=== PATIENT | female | born 1950 | race African-American/Black ===

== ENCOUNTER 2019-04-29 11:53 | Inpatient (IN) | payer OTHER ==
[2019-04-29] VITALS (7 sets, daily range): BP systolic 127–152; BP diastolic 19–103
[~2019-04-29] VITALS: Ht 167.6 cm; Wt 81.2 kg
[2019-04-29] MEDS ORDERED: ALBUTEROL (0.083%) 2.5MG/3ML NEB HHN STA (12:27)
[2019-04-29] MEDS ORDERED: METHYLPREDNISOLONE SOD SUCC 125 MG/2 ML VIAL IV STA (12:27)
[2019-04-29] MEDS ORDERED: IPRATROPIUM BROMIDE (0.02%) 0.5MG/2.5ML NEB HHN STA (12:27)
[2019-04-29] MEDS ORDERED: ASPIRIN 81MG TABLET PO ONE (12:30)
[2019-04-29 12:48] LABS: BASOPHILS % 0.6 % (0.0-2.0); EOSINOPHILS % 1.1 % (0.0-5.0); HEMOGLOBIN. 14.8 g/dL (12.0-16.0); LYMPHOCYTES % 24.8 % (20.0-50.0); MEAN CORPUSCULAR HEMOGLOBIN 31.9 pg (28.0-32.0); MEAN CORPUSCULAR VOLUME 94.8 fL (81.0-99.0); MEAN PLATELET VOLUME 9.4 fl (7.4-10.4); MONOCYTES % 6.4 % (2.0-8.0); NEUTROPHILS % 67.1 % (40.0-76.0); PLATELET 134 x1000/uL (130-400); RED BLOOD CELL COUNT 4.64 mill/uL (4.2-5.4); RED CELL DISTRIBUTION WIDTH 13.4 % (11.6-14.6)
[2019-04-29 12:56] LABS: CHLORIDE 99 mEq/L (98-107)
[2019-04-29] MEDS ORDERED: NITROGLYCERIN 0.4MG TABLET SL SL ONE (13:30)
[2019-04-29] MEDS ORDERED: ENOXAPARIN 80MG/0.8ML SYR SUBCUT ONE (14:30)
[2019-04-29] MEDS ORDERED: CLONIDINE 0.1MG TABLET PO PRN ×2 (16:15→21:00)
[2019-04-29] MEDS: POTASSIUM CHLORIDE 20MEQ TABLET SR PO SCH (17:22)
[2019-04-29] MEDS: NITROGLYCERIN OINT 1GM/INCH UDPKT TD SCH ×2 (17:24→23:19)
[2019-04-29] MEDS ORDERED: ONDANSETRON HCL 4MG/2ML INJ IV PRN (21:00)
[2019-04-29] MEDS: LOSARTAN POTASSIUM 50 MG TABLET PO SCH (21:58)
[2019-04-29] MEDS: ACETAMINOPHEN 325MG TABLET PO PRN (21:58)
[2019-04-29] MEDS: FAMOTIDINE 20MG TABLET PO SCH (21:58)
[2019-04-29] MEDS: AMLODIPINE 2.5MG TABLET PO SCH (23:18)
[2019-04-30] VITALS (19 sets, daily range): BP systolic 99–138; BP diastolic 49–90
[2019-04-30] MEDS: IPRATROPIUM/ALBUTEROL 0.5-3(2.5)MG/3ML NEB HHN PRN ×2 (00:55→05:52)
[2019-04-30] MEDS: NITROGLYCERIN OINT 1GM/INCH UDPKT TD SCH ×3 (05:43→17:12)
[2019-04-30 07:53] LABS: CLARITY URINE CLOUDY (CLEAR); COLOR URINE YELLOW (YELLOW); KETONES URINE TRACE (NEGATIVE); LEUKOCYTE ESTERASE URINE 1+ (NEGATIVE); NITRITE URINE NEGATIVE (NEGATIVE); OCCULT BLOOD URINE 1+ (NEGATIVE); PH URINE 5.5 (4.5-8.0); PROTEIN URINE 1+ (NEGATIVE); SPECIFIC GRAVITY URINE 1.022 (1.005-1.030)
[2019-04-30] MEDS: ASPIRIN 81MG EC TABLET PO SCH (08:13)
[2019-04-30] MEDS: AMLODIPINE 2.5MG TABLET PO SCH ×2 (08:13→21:00)
[2019-04-30] MEDS: LOSARTAN POTASSIUM 50 MG TABLET PO SCH ×2 (08:14→21:00)
[2019-04-30] MEDS: ACETAMINOPHEN 325MG TABLET PO PRN (08:20)
[2019-04-30 08:42] LABS: BASOPHILS % 0.5 % (0.0-2.0); HEMATOCRIT. 45.3 % (36.0-48.0); LYMPHOCYTES % 13.9 % (20.0-50.0); MEAN CORPUSCULAR HEMOGLOBIN 31.6 pg (28.0-32.0); MEAN CORPUSCULAR VOLUME 95.2 fL (81.0-99.0); MEAN PLATELET VOLUME 10.4 fl (7.4-10.4); MONOCYTES % 6.6 % (2.0-8.0); PLATELET 134 x1000/uL (130-400); RED BLOOD CELL COUNT 4.76 mill/uL (4.2-5.4); RED CELL DISTRIBUTION WIDTH 13.4 % (11.6-14.6)
[2019-04-30 08:45] LABS: CHLORIDE 101 mEq/L (98-107)
[2019-04-30 08:53] LABS: HDL CHOLESTEROL 67 mg/dL (40-59)
[2019-04-30 08:54] LABS: CREATINE KINASE 91 IU/L (26-192); LDL CHOLESTEROL 116 mg/dL (5-100)
[2019-04-30 08:55] LABS: T4 FREE 1.22 ng/dL (0.76-1.46)
[2019-04-30] MEDS ORDERED: ASPIRIN 81MG EC TABLET PO SCH (09:00)
[2019-04-30] MEDS: POTASSIUM CHLORIDE 20MEQ TABLET SR PO SCH ×2 (09:18→16:10)
[2019-04-30] MEDS ORDERED: ENOXAPARIN 60MG/0.6ML SYR SUBCUT NR (12:15)
[2019-04-30] MEDS ORDERED: NITROGLYCERIN 0.4MG TABLET SL SL PRN (15:45)
[2019-04-30] MEDS ORDERED: BISACODYL 5MG TABLET PO PRN (15:45)
[2019-04-30] MEDS ORDERED: HYDROCODONE/ACETAMINOPHEN 5/325MG TABLET PO PRN (15:45)
[2019-04-30] MEDS ORDERED: HYDRALAZINE 20MG/ML VIAL IV PRN (15:45)
[2019-04-30] MEDS ORDERED: DIPHENHYDRAMINE 50MG/ML VIAL IV PRN (15:45)
[2019-04-30] MEDS: METHYLPREDNISOLONE SOD SUCC 40 MG/ML VIAL IV SCH (17:09)
[2019-04-30] MEDS: IPRATROPIUM/ALBUTEROL 0.5-3(2.5)MG/3ML NEB HHN SCH (19:59)
[2019-04-30] MEDS: BUDESONIDE 0.5MG/2ML NEB HHN SCH (19:59)
[2019-04-30] MEDS: FAMOTIDINE 20MG TABLET PO SCH (20:09)
[2019-04-30] MEDS: CEFTRIAXONE 1 G PREMIX 50 ML IV SCH (20:09)
[2019-04-30] MEDS: ATORVASTATIN CALCIUM 10MG TABLET PO SCH (20:09)
[2019-04-30] MEDS ORDERED: ENOXAPARIN 40MG/0.4ML SYR SUBCUT SCH (21:00)
[2019-05-01] VITALS (19 sets, daily range): BP systolic 114–173; BP diastolic 60–106
[2019-05-01] MEDS ORDERED: DEXT 5%/0.45% NACL 1000ML 1,000 ML IV SCH
[2019-05-01] MEDS ORDERED: ENOXAPARIN 60MG/0.6ML SYR SUBCUT NR (00:15)
[2019-05-01] MEDS: IPRATROPIUM/ALBUTEROL 0.5-3(2.5)MG/3ML NEB HHN SCH ×4 (01:56→20:46)
[2019-05-01] MEDS: METHYLPREDNISOLONE SOD SUCC 40 MG/ML VIAL IV SCH ×2 (05:33→17:57)
[2019-05-01] MEDS: NITROGLYCERIN OINT 1GM/INCH UDPKT TD SCH ×4 (05:33→18:00)
[2019-05-01 06:55] LABS: BASOPHILS % 0.2 % (0.0-2.0); HEMATOCRIT. 45.4 % (36.0-48.0); HEMOGLOBIN. 14.9 g/dL (12.0-16.0); MEAN CORPUSCULAR HEMOGLOBIN 31.4 pg (28.0-32.0); MEAN CORPUSCULAR VOLUME 95.5 fL (81.0-99.0); MEAN PLATELET VOLUME 10.8 fl (7.4-10.4); MONOCYTES % 3.8 % (2.0-8.0); PLATELET 145 x1000/uL (130-400); RED BLOOD CELL COUNT 4.76 mill/uL (4.2-5.4); RED CELL DISTRIBUTION WIDTH 13.9 % (11.6-14.6)
[2019-05-01] MEDS: POTASSIUM CHLORIDE 20MEQ TABLET SR PO SCH ×2 (09:00→17:59)
[2019-05-01] MEDS: ASPIRIN 81MG EC TABLET PO SCH (09:00)
[2019-05-01] MEDS: LOSARTAN POTASSIUM 50 MG TABLET PO SCH ×2 (09:00→22:29)
[2019-05-01] MEDS: AMLODIPINE 2.5MG TABLET PO SCH ×2 (09:00→21:03)
[2019-05-01 09:28] LABS: CHLORIDE 103 mEq/L (98-107)
[2019-05-01 09:43] LABS: CREATINE KINASE 95 IU/L (26-192)
[2019-05-01 09:47] LABS: CREATINE KINASE MB FRACTION 8.4 ng/mL (0.5-3.6)
[2019-05-01] MEDS: BUDESONIDE 0.5MG/2ML NEB HHN SCH ×2 (09:48→20:46)
[2019-05-01] MEDS: SODIUM CHLORIDE 0.45% 1,000 ML IV SCH (10:32)
[2019-05-01] MEDS ORDERED: FUROSEMIDE 40MG/4ML VIAL IVP NR (11:15)
[2019-05-01] MEDS: ACETAMINOPHEN 325MG TABLET PO PRN (13:40)
[2019-05-01] MEDS: CEFTRIAXONE 1 G PREMIX 50 ML IV SCH (17:58)
[2019-05-01] MEDS: FAMOTIDINE 20MG TABLET PO SCH (21:03)
[2019-05-01] MEDS: ATORVASTATIN CALCIUM 10MG TABLET PO SCH (21:03)
[2019-05-01] MEDS: ENOXAPARIN 40MG/0.4ML SYR SUBCUT SCH (21:04)
[2019-05-02] VITALS (15 sets, daily range): BP systolic 108–175; BP diastolic 50–99
[2019-05-02] MEDS: NITROGLYCERIN OINT 1GM/INCH UDPKT TD SCH ×5 (01:00→23:48)
[2019-05-02] MEDS: SODIUM CHLORIDE 0.45% 1,000 ML IV SCH (01:10)
[2019-05-02] MEDS: IPRATROPIUM/ALBUTEROL 0.5-3(2.5)MG/3ML NEB HHN SCH ×4 (02:13→20:01)
[2019-05-02] MEDS: METHYLPREDNISOLONE SOD SUCC 40 MG/ML VIAL IV SCH (04:20)
[2019-05-02 07:20] LABS: CHLORIDE 104 mEq/L (98-107)
[2019-05-02 07:33] LABS: HEMATOCRIT. 42.5 % (36.0-48.0); HEMOGLOBIN. 13.9 g/dL (12.0-16.0); MEAN CORPUSCULAR HEMOGLOBIN 31.5 pg (28.0-32.0); MEAN CORPUSCULAR VOLUME 96.2 fL (81.0-99.0); MEAN PLATELET VOLUME 10.6 fl (7.4-10.4); PLATELET 131 x1000/uL (130-400); RED BLOOD CELL COUNT 4.42 mill/uL (4.2-5.4); RED CELL DISTRIBUTION WIDTH 13.7 % (11.6-14.6)
[2019-05-02] MEDS: BUDESONIDE 0.5MG/2ML NEB HHN SCH ×2 (08:57→20:01)
[2019-05-02] MEDS: ENOXAPARIN 40MG/0.4ML SYR SUBCUT SCH (09:00)
[2019-05-02] MEDS: POTASSIUM CHLORIDE 20MEQ TABLET SR PO SCH ×2 (09:00→17:03)
[2019-05-02] MEDS: AMLODIPINE 2.5MG TABLET PO SCH (09:00)
[2019-05-02] MEDS: FUROSEMIDE 40MG/4ML VIAL IVP SCH (09:00)
[2019-05-02] MEDS: LOSARTAN POTASSIUM 50 MG TABLET PO SCH ×2 (09:00→20:47)
[2019-05-02] MEDS: ASPIRIN 81MG EC TABLET PO SCH (09:44)
[2019-05-02 12:44] LABS: PLATELET ESTIMATE NORMAL
[2019-05-02] MEDS ORDERED: NITROGLYCERIN 50MCG/ML 10ML VIAL (CATH LAB) IV ONE (12:54)
[2019-05-02] MEDS ORDERED: NICARDIPINE 100MCG/ML 10ML VIAL (CATH LAB) IV ONE (12:54)
[2019-05-02] MEDS ORDERED: HEPARIN SODIUM 1,000 UNIT/1ML VIAL IV ONE (12:54)
[2019-05-02] MEDS ORDERED: LIDOCAINE HCL 1% 20ML VIAL (Pyxis) INJ ONE (13:53)
[2019-05-02] MEDS ORDERED: IODIXANOL 320MG/ML 100 ML BOTTLE IV ONE (13:53)
[2019-05-02] MEDS ORDERED: ASPIRIN/SOD BICARB/CITRIC ACID 324MG TAB EFF ONE (14:09)
[2019-05-02] MEDS ORDERED: MIDAZOLAM HCL 2 MG/2 ML VIAL ONE (14:16)
[2019-05-02] MEDS ORDERED: FENTANYL CITRATE/PF 50MCG/ML 2ML VIAL ONE (14:17)
[2019-05-02] MEDS ORDERED: ONDANSETRON HCL 4MG/2ML INJ IV PRN (14:45)
[2019-05-02] MEDS ORDERED: ACETAMINOPHEN 325MG TABLET PO PRN (14:45)
[2019-05-02] MEDS ORDERED: SODIUM CHLORIDE 0.45% 400 ML IV ONE (14:45)
[2019-05-02] MEDS ORDERED: MORPHINE SULFATE 2 MG/ML CPJ (NOT FOR IM USE) IV PRN (14:45)
[2019-05-02] MEDS ORDERED: ATROPINE SULFATE 1MG/10ML SYR IV PRN (14:45)
[2019-05-02] MEDS: CEFTRIAXONE 1 G PREMIX 50 ML IV SCH (18:35)
[2019-05-02] MEDS: ATORVASTATIN CALCIUM 10MG TABLET PO SCH (20:46)
[2019-05-02] MEDS: AMLODIPINE 5MG TABLET PO SCH (20:47)
[2019-05-02] MEDS: FAMOTIDINE 20MG TABLET PO SCH (20:47)
[2019-05-03] VITALS (10 sets, daily range): BP systolic 100–157; BP diastolic 57–88
[2019-05-03] MEDS: IPRATROPIUM/ALBUTEROL 0.5-3(2.5)MG/3ML NEB HHN SCH ×3 (01:58→14:22)
[2019-05-03] MEDS: NITROGLYCERIN OINT 1GM/INCH UDPKT TD SCH ×3 (05:48→18:00)
[2019-05-03 06:59] LABS: BASOPHILS % 0.3 % (0.0-2.0); EOSINOPHILS % 0.1 % (0.0-5.0); HEMATOCRIT. 44.4 % (36.0-48.0); HEMOGLOBIN. 14.3 g/dL (12.0-16.0); LYMPHOCYTES % 19.5 % (20.0-50.0); MEAN CORPUSCULAR HEMOGLOBIN 31.2 pg (28.0-32.0); MEAN CORPUSCULAR VOLUME 96.4 fL (81.0-99.0); MEAN PLATELET VOLUME 10.5 fl (7.4-10.4); MONOCYTES % 7.5 % (2.0-8.0); NEUTROPHILS % 72.6 % (40.0-76.0); PLATELET 136 x1000/uL (130-400); RED CELL DISTRIBUTION WIDTH 13.8 % (11.6-14.6)
[2019-05-03 07:11] LABS: CHLORIDE 104 mEq/L (98-107)
[2019-05-03] MEDS: BUDESONIDE 0.5MG/2ML NEB HHN SCH (08:38)
[2019-05-03] MEDS: FUROSEMIDE 40MG/4ML VIAL IVP SCH (08:48)
[2019-05-03] MEDS: POTASSIUM CHLORIDE 20MEQ TABLET SR PO SCH ×2 (08:49→18:31)
[2019-05-03] MEDS: AMLODIPINE 5MG TABLET PO SCH (08:49)
[2019-05-03] MEDS: ASPIRIN 81MG EC TABLET PO SCH (08:50)
[2019-05-03] MEDS: LOSARTAN POTASSIUM 50 MG TABLET PO SCH (08:50)
[2019-05-03] MEDS: CEFTRIAXONE 1 G PREMIX 50 ML IV SCH (17:00)
== END 2019-05-03 19:27 | disposition home or self-care (01) | DRG 280 ==
LOC: ER 11:53 → 3WST 14:56 → EDBEDREQTM 15:00 → EDBEDREQ 15:00 → ENRESERV 15:49 → CANRESERV 15:50
PROVIDERS: ADMIT Internal Medicine; ATTEND Internal Medicine
PROC: 4A023N7 Measurement of Cardiac Sampling and Pressure, Left Heart, Percutaneous Approach (ICD-10-PCS; principal; 2019-05-02)
PROC: B2111ZZ Fluoroscopy of Multiple Coronary Arteries using Low Osmolar Contrast (ICD-10-PCS; 2019-05-02)
PROC: B2151ZZ Fluoroscopy of Left Heart using Low Osmolar Contrast (ICD-10-PCS; 2019-05-02)
DX: I21.4 Non-ST elevation (NSTEMI) myocardial infarction (principal); I50.23 Acute on chronic systolic (congestive) heart failure; J44.1 Chronic obstructive pulmonary disease with (acute) exacerbation; N39.0 Urinary tract infection, site not specified; I42.9 Cardiomyopathy, unspecified; J84.9 Interstitial pulmonary disease, unspecified; I11.0 Hypertensive heart disease with heart failure; E03.9 Hypothyroidism, unspecified; E11.9 Type 2 diabetes mellitus without complications; E78.00 Pure hypercholesterolemia, unspecified; E78.5 Hyperlipidemia, unspecified; I25.10 Atherosclerotic heart disease of native coronary artery without angina pectoris; Z99.81 Dependence on supplemental oxygen; Z87.891 Personal history of nicotine dependence; Z85.118 Personal history of other malignant neoplasm of bronchus and lung; Z88.5 Allergy status to narcotic agent; Z79.899 Other long term (current) drug therapy
CPT/HCPCS: 36415; 71045; 80048; 80061; 81003; 82550; 82553; 83036; 83735; 83880; 84439; 84443; 84484; 85379; 93005; 93306; 93458; 93970; 94640; 99291; C1769; C1893; J0360; J0696; J1644; J1650; J1940; J2250; J2920; J2930; J3010; J3490; J7611; J7620; J7626; Q9967